=== PATIENT | female | born 1980 | race Caucasian/White ===

== ENCOUNTER 2017-05-24 19:57 | Inpatient (IN) | payer MEDICARE ==
[~2017-05-24] VITALS: Ht 160 cm; Wt 76.1 kg
[2017-05-24] MEDS ORDERED: LORazepam 2 MG TABLET PO PRN (21:00)
[2017-05-24] MEDS ORDERED: INFLUENZA VIRUS VACCINE QVS 2017-18 (3YR+)/PF 60 MCG/0.5 ML SYRINGE IM ONE (21:00)
[2017-05-24] MEDS ORDERED: ZOLPIDEM TARTRATE 10 MG TABLET PO PRN (21:00)
[2017-05-24] MEDS ORDERED: HALOPERIDOL 5 MG TABLET PO PRN (21:00)
[2017-05-24 21:41] VITALS: BP 111/70
[2017-05-24] MEDS ORDERED: PNEUMOCOCCAL VACCINE POLYVALENT 0.5 ML VIAL [PPSV23] IM ONE (21:45)
[2017-05-25 00:20] VITALS: BP 109/61
[2017-05-25 08:35] LABS: BASOPHILS % (AUTO) 0.6 % (0.0-2.0); EOSINOPHILS % (AUTO) 2.7 % (1.0-6.0); HEMATOCRIT 32.9 % (36-46); HEMOGLOBIN 10.8 g/dL (12.0-16.0); LYMPHOCYTES # (AUTO) 1.4 K/uL (1.0-4.8); LYMPHOCYTES % (AUTO) 27.3 % (22.0-44.0); MEAN CORPUSCULAR HEMOGLOBIN 28.2 pg (26.0-34.0); MEAN CORPUSCULAR HGB CONC 32.9 G/dL (31.0-37.0); MEAN CORPUSCULAR VOLUME 86 fL (80-100); MONOCYTES # (AUTO) 0.4 K/uL (0.1-1.0); MONOCYTES % (AUTO) 8.4 % (2.0-9.0); NEUTROPHILS # (AUTO) 3.2 K/uL (1.8-7.7); PLATELET COUNT (AUTO) 212 K/uL (150-450); RED BLOOD CELL COUNT(AUTO) 3.84 MIL/uL (4.00-5.20); RED CELL DISTRIBUTION WIDTH 15.6 % (11.5-14.5)
[2017-05-25 08:42] VITALS: BP 100/69
[2017-05-25 08:52] LABS: HEMOGLOBIN A1C 5.4 % (4.5-6.2)
[2017-05-25] MEDS: BACITRACIN 28.4 GM OINTMENT TP SCH ×2 (09:19→17:20)
[2017-05-25 09:33] LABS: ALANINE AMINOTRANSFERASE 16 U/L (12-78); ALBUMIN 3.1 g/dL (3.4-5.0); ALKALINE PHOSPHATASE 69 U/L (46-116); ANION GAP 6 mmol/L (8-16); ASPARTATE AMINOTRANSFERASE 13 U/L (15-37); BILIRUBIN,TOTAL 0.2 mg/dL (0.1-1.0); CALCIUM, TOTAL 8.5 mg/dL (8.8-10.5); CARBON DIOXIDE 29 mmol/L (22-29); CHLORIDE 109 mmol/L (98-107); CHOL/HDL RATIO 3.3 (3.9-5.7); CHOLESTEROL 117 mg/dL (131-200); CREATININE 0.56 mg/dL (0.60-1.30); FREE T4 (FREE THYROXINE) 0.95 ng/dL (0.76-1.46); GLOMERULAR FILTR. RATE CALC > 60 mL/min (>60); GLUCOSE,RANDOM 84 mg/dL (70-110); HCG,QUANTITATIVE < 1 mIU/mL (0-6); HDL CHOLESTEROL 36 mg/dL (40-60); LDL CHOL (CALC.) 71 mg/dL (0-130); SODIUM SERUM 144 mmol/L (136-145); THYROID STIMULATING HORMONE 3.24 uIU/mL (0.36-3.74); TOTAL PROTEIN, SERUM 6.1 g/dL (6.4-8.2); TRIGLYCERIDES 48 mg/dL (15-150); UREA NITROGEN, BLOOD 10 mg/dL (7-18)
[2017-05-25 16:22] VITALS: BP 105/63
[2017-05-25] MEDS ORDERED: ACETAMINOPHEN 325 MG TABLET PO PRN (17:00)
[2017-05-25] MEDS ORDERED: IBUPROFEN 400 MG TABLET PO PRN (17:00)
[2017-05-25] MEDS: FERROUS SULFATE 325 MG EC TABLET PO SCH (17:32)
[2017-05-25] MEDS: RisperiDONE 2 MG TABLET PO SCH (20:35)
[2017-05-26 06:34] VITALS: BP 103/66
[2017-05-26] MEDS: FERROUS SULFATE 325 MG EC TABLET PO SCH ×2 (07:06→16:29)
[2017-05-26] MEDS: BACITRACIN 28.4 GM OINTMENT TP SCH ×2 (08:40→16:29)
[2017-05-26 09:00] VITALS: BP 112/63
[2017-05-26 14:35] VITALS: BP 116/64
[2017-05-26] MEDS: IBUPROFEN 400 MG TABLET PO PRN (14:35)
[2017-05-26 16:22] VITALS: BP 104/61
[2017-05-26] MEDS: RisperiDONE 2 MG TABLET PO SCH (20:43)
[2017-05-27 05:52] VITALS: BP 102/65
[2017-05-27] MEDS: FERROUS SULFATE 325 MG EC TABLET PO SCH ×2 (07:17→16:38)
[2017-05-27] MEDS: BACITRACIN 28.4 GM OINTMENT TP SCH ×2 (09:10→16:39)
[2017-05-27 09:13] VITALS: BP 110/68
[2017-05-27 16:13] VITALS: BP 128/60
[2017-05-27] MEDS: RisperiDONE 2 MG TABLET PO SCH (20:44)
[2017-05-28 06:41] VITALS: BP 101/65
[2017-05-28] MEDS: FERROUS SULFATE 325 MG EC TABLET PO SCH ×2 (06:45→16:32)
[2017-05-28 08:22] VITALS: BP 107/62
[2017-05-28] MEDS: BACITRACIN 28.4 GM OINTMENT TP SCH ×2 (08:28→16:32)
[2017-05-28 16:16] VITALS: BP 117/66
[2017-05-28] MEDS: RisperiDONE 2 MG TABLET PO SCH (20:36)
[2017-05-29] VITALS: BP 102/60
[2017-05-29] MEDS: FERROUS SULFATE 325 MG EC TABLET PO SCH ×2 (07:15→16:47)
[2017-05-29 08:11] VITALS: BP 109/60
[2017-05-29] MEDS: BACITRACIN 28.4 GM OINTMENT TP SCH ×2 (08:31→16:47)
[2017-05-29 16:37] VITALS: BP 117/64
[2017-05-29] MEDS: RisperiDONE 2 MG TABLET PO SCH (20:49)
[2017-05-30 01:00] VITALS: BP 100/62
[2017-05-30] MEDS: FERROUS SULFATE 325 MG EC TABLET PO SCH ×2 (06:48→17:11)
[2017-05-30 08:00] VITALS: BP 104/59
[2017-05-30] MEDS: BACITRACIN 28.4 GM OINTMENT TP SCH ×2 (08:39→17:11)
[2017-05-30 16:20] VITALS: BP 126/70
[2017-05-30 16:40] VITALS: BP 120/66
[2017-05-30] MEDS: ACETAMINOPHEN 325 MG TABLET PO PRN (16:42)
[2017-05-30] MEDS: RisperiDONE 2 MG TABLET PO SCH (21:11)
[2017-05-31] MEDS: FERROUS SULFATE 325 MG EC TABLET PO SCH ×2 (06:52→17:00)
[2017-05-31] MEDS: BACITRACIN 28.4 GM OINTMENT TP SCH ×2 (09:02→17:00)
[2017-05-31 09:08] VITALS: BP 117/55
[2017-05-31 16:22] VITALS: BP 106/63
[2017-05-31] MEDS: RisperiDONE 2 MG TABLET PO SCH (20:06)
[2017-06-01 01:45] VITALS: BP 135/65
[2017-06-01] MEDS: FERROUS SULFATE 325 MG EC TABLET PO SCH ×2 (06:24→16:38)
[2017-06-01] MEDS: BACITRACIN 28.4 GM OINTMENT TP SCH ×2 (08:26→16:38)
[2017-06-01 09:18] VITALS: BP 104/56
[2017-06-01] MEDS: RisperiDONE 2 MG TABLET PO SCH ×2 (10:37→20:34)
[2017-06-01 16:15] VITALS: BP 120/79
[2017-06-02 00:01] VITALS: BP 105/61
[2017-06-02] MEDS: FERROUS SULFATE 325 MG EC TABLET PO SCH ×2 (06:11→16:37)
[2017-06-02 08:30] VITALS: BP 104/60
[2017-06-02] MEDS: RisperiDONE 2 MG TABLET PO SCH ×2 (08:46→20:35)
[2017-06-02 16:00] VITALS: BP 103/61
[2017-06-03 02:42] VITALS: BP 109/62
[2017-06-03] MEDS: FERROUS SULFATE 325 MG EC TABLET PO SCH ×2 (07:02→16:38)
[2017-06-03 08:43] VITALS: BP 131/72
[2017-06-03] MEDS: RisperiDONE 2 MG TABLET PO SCH ×2 (08:51→20:36)
[2017-06-03 16:09] VITALS: BP 109/73
[2017-06-04 01:25] VITALS: BP 110/72
[2017-06-04] MEDS: FERROUS SULFATE 325 MG EC TABLET PO SCH ×2 (07:05→16:37)
[2017-06-04] MEDS: RisperiDONE 2 MG TABLET PO SCH (08:38)
[2017-06-04 09:35] VITALS: BP 131/72
[2017-06-04 16:10] VITALS: BP 105/68
[2017-06-04] MEDS: RisperiDONE 3 MG TABLET PO SCH (20:33)
[2017-06-05] MEDS: FERROUS SULFATE 325 MG EC TABLET PO SCH ×2 (06:42→17:07)
[2017-06-05 08:38] VITALS: BP 104/60
[2017-06-05] MEDS: RisperiDONE 3 MG TABLET PO SCH ×2 (09:01→20:21)
[2017-06-05 16:13] VITALS: BP 105/62
[2017-06-06 06:29] VITALS: BP 106/65
[2017-06-06] MEDS: FERROUS SULFATE 325 MG EC TABLET PO SCH ×2 (06:51→16:38)
[2017-06-06 08:24] VITALS: BP 115/60
[2017-06-06] MEDS: RisperiDONE 3 MG TABLET PO SCH ×2 (08:31→20:38)
[2017-06-06 16:26] VITALS: BP 106/60
[2017-06-07] VITALS: BP 106/61
[2017-06-07] MEDS: FERROUS SULFATE 325 MG EC TABLET PO SCH ×2 (06:22→16:35)
[2017-06-07 08:29] VITALS: BP 100/60
[2017-06-07] MEDS: RisperiDONE 3 MG TABLET PO SCH ×2 (08:30→20:34)
[2017-06-07 16:33] VITALS: BP 105/64
[2017-06-07] MEDS: ACETAMINOPHEN 325 MG TABLET PO PRN (17:57)
[2017-06-07 21:36] VITALS: BP 114/67
[2017-06-07] MEDS: IBUPROFEN 400 MG TABLET PO PRN (21:36)
[2017-06-08] VITALS: BP 104/61
[2017-06-08] MEDS: FERROUS SULFATE 325 MG EC TABLET PO SCH ×2 (06:49→16:32)
[2017-06-08 08:35] VITALS: BP 100/60
[2017-06-08] MEDS: RisperiDONE 3 MG TABLET PO SCH ×2 (08:45→21:36)
[2017-06-08] MEDS ORDERED: PALIPERIDONE PALMITATE 234 MG/1.5 ML SYRINGE IM ONE (09:45)
[2017-06-08 12:27] VITALS: BP 112/64
[2017-06-08] MEDS: ACETAMINOPHEN 325 MG TABLET PO PRN (12:27)
[2017-06-08 16:19] VITALS: BP 103/62
[2017-06-08 16:40] VITALS: BP 111/62
[2017-06-08] MEDS: IBUPROFEN 400 MG TABLET PO PRN (16:46)
[2017-06-08] MEDS: CARBAMIDE PEROXIDE 6.5% 15 ML OTIC SOLUTION AS SCH (21:35)
[2017-06-09] MEDS: FERROUS SULFATE 325 MG EC TABLET PO SCH ×2 (06:44→16:40)
[2017-06-09 07:01] VITALS: BP 113/67
[2017-06-09 08:10] VITALS: BP 106/61
[2017-06-09] MEDS: RisperiDONE 3 MG TABLET PO SCH ×2 (08:48→20:38)
[2017-06-09] MEDS: CARBAMIDE PEROXIDE 6.5% 15 ML OTIC SOLUTION AS SCH ×2 (08:48→16:40)
[2017-06-09 16:20] VITALS: BP 108/63
[2017-06-10] MEDS: FERROUS SULFATE 325 MG EC TABLET PO SCH ×2 (07:08→16:33)
[2017-06-10 08:45] VITALS: BP 105/70
[2017-06-10] MEDS: RisperiDONE 3 MG TABLET PO SCH ×2 (08:50→20:31)
[2017-06-10] MEDS: CARBAMIDE PEROXIDE 6.5% 15 ML OTIC SOLUTION AS SCH ×2 (08:50→16:33)
[2017-06-10 16:23] VITALS: BP 123/66
[2017-06-11] VITALS: BP 108/65
[2017-06-11] MEDS: FERROUS SULFATE 325 MG EC TABLET PO SCH ×2 (06:12→16:32)
[2017-06-11 08:14] VITALS: BP 102/60
[2017-06-11] MEDS: RisperiDONE 3 MG TABLET PO SCH ×2 (08:19→20:40)
[2017-06-11] MEDS: CARBAMIDE PEROXIDE 6.5% 15 ML OTIC SOLUTION AS SCH ×2 (08:20→16:32)
[2017-06-11 16:18] VITALS: BP 111/62
[2017-06-12 00:10] VITALS: BP 118/80
[2017-06-12] MEDS: FERROUS SULFATE 325 MG EC TABLET PO SCH (06:42)
[2017-06-12] MEDS ORDERED: RISP3 PO (08:25)
[2017-06-12] MEDS ORDERED: PALI234D IM (08:25)
[2017-06-12] MEDS: RisperiDONE 3 MG TABLET PO SCH (08:31)
[2017-06-12] MEDS: CARBAMIDE PEROXIDE 6.5% 15 ML OTIC SOLUTION AS SCH (08:32)
[2017-06-12 08:41] VITALS: BP 105/60
[2017-06-12] MEDS ORDERED: PALIPERIDONE PALMITATE 156 MG/ML SYRINGE IM ONE (09:00)
[2017-06-12] MEDS ORDERED: FERR-89 PO (10:12)
== END 2017-06-12 10:49 | disposition home or self-care (01) | DRG 885 ==
LOC: EDSTATUS 20:31 → B2X 20:52
DX: F20.1 Disorganized schizophrenia (principal); E44.0 Moderate protein-calorie malnutrition; F20.0 Paranoid schizophrenia; E83.51 Hypocalcemia; D64.9 Anemia, unspecified; G47.00 Insomnia, unspecified; K21.9 Gastro-esophageal reflux disease without esophagitis; H92.02 Otalgia, left ear; Z59.0 Homelessness; Z68.29 Body mass index [BMI] 29.0-29.9, adult
CPT/HCPCS: 83036; 84439; 84443; 99285